=== PATIENT | male | born 2000 | race Caucasian/White ===

== ENCOUNTER 2019-12-06 11:54 | Emergency (ER) | payer SELFPAY ==
[~2019-12-06] VITALS: Ht 177.8 cm; Wt 98.9 kg
[2019-12-06 12:02] VITALS: Ht 177.8 cm; Wt 98.9 kg
[2019-12-06 14:10] VITALS: BP 126/83
== END 2019-12-06 14:10 | disposition home or self-care (01) ==
LOC: ED 11:54
DX: A18.01 Tuberculosis of spine (principal)
CPT/HCPCS: J2001